=== PATIENT | female | born 1945 | race Caucasian/White ===

== ENCOUNTER → 2019-01-06 17:13 | Outpatient (CLI) | payer MEDICARE, OTHER, SELFPAY ==
--- NOTE | 2019-01-06 17:28 | MRI_ITS ---
HISTORY:LOWER BACK PAIN AND LEG PAIN MR Spine Lumbar W/O Contrast Technique:Sagittal T1-T2 and STIR and axial T1 and T2-weighted images # of images including paperwork:127 Comparison:none Findings: The vertebral body heights are maintained Straightening of the normal lumbar lordosis The conus ends at the L1-L2 disc space and appears within normal limits. L1-2:This desiccation. Diffuse annular bulge asymmetric to the right with disc material extending into the neural foramen. There is effacement of the ventral thecal sac. No evidence of canal stenosis. There is moderate right and mild left neuroforaminal narrowing. There is effacement of the right L1 nerve root within the neural foramen L2-3:Posterior osteophytes and diffuse annular bulge. There is a trefoil appearance of the canal. The canals at the lower limits of normal. There is moderate bilateral neural foraminal narrowing. Effacement of the right L2 nerve root within the foramen and as it exits and the left L2 nerve root as it exits the foramen L3-4:Disc desiccation Diffuse annular bulge asymmetric to the right. There is a left central and foraminal disc protrusion. There is effacement of the ventral thecal sac. The sac is narrowed to approximate 5.5 mm. There is facet arthrosis. Moderate left and right neural foraminal narrowing. There is effacement of the right L3 nerve root within the foramen L4-5:Disc desiccation. Posterior osteophytes. Trefoil appearance to the canal. There is a diffuse annular bulge asymmetric to the left with disc material extending into the left foramen. There is ligamentum flavum hypertrophy and facet arthrosis. The canal is narrowed to approximately 6 mm. Moderate to marked left and moderate right neural foraminal narrowing there is effacement of the left L4 nerve root as it exits the foramen L5-S1:Disc desiccation. There is a high intensity zone at the posterior annulus. Central disc protrusion effacing the ventral thecal sac. This does extend below the level of the superior endplate of S1 by approximately 3.6 mm. There is effacement of the ventral thecal sac. Moderate to marked bilateral neural foraminal narrowing. There is effacement of the bilateral L5 nerve roots within the neural foramen and as they exit. MRI/Spine Lumbar (Routine) IMPRESSION: Multilevel degenerative disc disease as discussed. There is moderate canal stenosis at the level of L3-4 with the canal measuring 5.5 mm. The canal measures 6 mm at L4-5 Central disc protrusion at L5-S1 as discussed L1-2 there is effacement of the right L1 nerve root within the neural foramen L2-3 effacement of the right L2 nerve root within the foramen and as it exits the foramen and the left L2 nerve root as it exits the foramen L3-4 effacement of the right L3 nerve root within the foramen L4-5 effacement of the left L4 nerve root as it exits the foramen L5-S1 effacement of the bilateral L5 nerve roots within the neural foramen and as they exit at 2126 Reported and signed by: Rocio Doshi DO Electronically Signed: Rocio Doshi DO at 21:25 EDT Tel , Service support ,
== END ==
PROVIDERS: Family Provider Family Medicine; PCP Family Medicine; Referring Provider Anesthesiology Pain Medicine; Visit Provider Anesthesiology Pain Medicine
DX: M54.9 Dorsalgia, unspecified (principal); R29.898 Other symptoms and signs involving the musculoskeletal system
CPT/HCPCS: 72148